=== PATIENT | male | born 1965 | race Caucasian/White ===

== ENCOUNTER 2016-08-09 16:29 | Emergency (ER) | payer BC ==
[~2016-08-09 16:29] MED LIST: ASAB PO; LIPITOR20 PO; LISINOPRIL40 MG PO; LOP25 PO; NEUR300 PO; NEXIUM20 M1 PO; NITROQUICK0.4 MG SL; NORV10 PO
[2016-08-09 17:10] LABS: BASOPHILS 0.1 %; BASOPHILS ABSOLUTE 0.01 10/3/uL (0.0-0.16); EOSINOPHILS 0.6 %; EOSINOPHILS ABSOLUTE 0.05 10/3/uL (0.0-0.53); HEMATOCRIT 42.2 % (40.0-51.0); HEMOGLOBIN 14.4 g/dL (13.6-17.8); IMMATURE GRANULOCYTES 0.2 %; IMMATURE GRANULOCYTES ABSOLUTE 0.02 10/3/uL (0.0-0.11); LYMPHOCYTES 8.8 %; LYMPHOCYTES ABSOLUTE 0.79 10/3/uL (0.67-4.30); MANUAL DIFF NO %; MEAN CORPUS HGB CONC 34.1 g/dL (32.0-36.0); MEAN CORPUSCULAR HEMOGLOB 28.4 pg (26.0-34.0); MEAN CORPUSCULAR VOLUME 83.2 fL (80-100); MEAN PLATELET VOLUME 10.7 fL (9.2-13.0); MONOCYTES 6.3 %; MONOCYTES ABSOLUTE 0.56 10/3/uL (0.21-1.20); NEUTROPHILS ABSOLUTE 7.51 10/3/uL (2.02-8.40); PLATELET COUNT 165 10/3/uL (150-400); RED CELL COUNT 5.07 10/6/uL (4.7-6.1); WHITE BLOOD CELLS 8.9 10/3/uL (4.5-10.5)
[2016-08-09 17:16] LABS: INTERNATIONAL NORMAL RATI 1.1 UNITS (-); PARTIAL THROMBO TIME 24.1 SEC (22.5-37.2); PROTIME (NOT ORD) 13.7 SEC (12.0-14.5)
[2016-08-09 17:24] LABS: BUN (BLOOD UREA NITROGEN) 13 MG/DL (6-23); CHEST PAIN PROFILE TAT 0 Hrs 18 Mins; CHLORIDE, SERUM 105 MMOL/L (96-112); CO2 (CARBON DIOXIDE) 30 MMOL/L (24-34); CREATININE 1.33 MG/DL (0.70-1.30); GFR AFRICAN AMERICAN 71 ML/MIN (>=60); GFR NON AFRICAN AMERICAN 61 ML/MIN (>=60); GLUCOSE, SERUM 105 MG/DL (60-99); POTASSIUM, SERUM 4.2 MMOL/L (3.5-5.3); SODIUM, SERUM 140 MMOL/L (135-148); TROPONIN I <0.02 NG/ML (<0.05)
== END 2016-08-09 18:11 | disposition left against medical advice (07) ==
LOC: ER 16:29
PROVIDERS: Physician Assistant
DX: R07.9 Chest pain, unspecified (principal); I10 Essential (primary) hypertension; K21.9 Gastro-esophageal reflux disease without esophagitis; E78.5 Hyperlipidemia, unspecified; Z79.899 Other long term (current) drug therapy; Z79.82 Long term (current) use of aspirin
CPT/HCPCS: 71010; 80048; 83735; 84484; 85025; 85610; 85730; 93005; 99285; A9270-GY

== ENCOUNTER 2016-08-22 12:44 | Inpatient (IN) | payer BC ==
--- NOTE | ~2016-08-22 | DS ---
Discharge Summary [facility] [address] [place]. [address] NAME: WARREN BLEDSOE : 61 STATUS : DIS IN PAT#: [id number] AGE: 50 ADM/REG DATE : 08/22/16 MR#: [id number] REPORT SERV DATE: 09/01/16 DICTATED BY: MONTSERRAT EUGENE DATE: 09/01/16 REPORT STATUS : Draft TRANSCRIBED BY: ZAHEER DATE: 09/01/16 Data Collection from hospitalization DISCHARGE DIAGNOSES: 1. ST-elevation myocardial infarction. 2. Coronary artery disease status post drug-eluting stent to the proximal LAD. 3. Hypertension. 4. Obstructive sleep apnea (CPAP). 5. Rheumatoid arthritis. CONSULTATIONS: None. PROCEDURES: Cardiac catheterization and percutaneous coronary intervention on 08/22/2016. DISCHARGE MEDICATIONS: Norvasc 10 mg daily, aspirin 81 mg daily, Lipitor 40 mg at bedtime, Coreg 6.25 mg twice a day, Nexium 20 mg at bedtime, NitroQuick 0.4 mg sublingually as needed, Brilinta 90 mg twice a day. He was instructed not to continue metoprolol or lisinopril. CONDITION ON DISCHARGE: Stable. DISPOSITION: The patient was discharged home on a low-sodium, low-cholesterol, cardiac diet with activities as instructed. He would follow up with me on 09/23/[address] Joby Hodge one week following discharge. HOSPITAL COURSE: This is a 50-year-old man, who has a history of coronary artery disease, which was thought to be nonobstructive at catheterization on 04/08/[address] Dexter. He had been in his usual state of health until the day prior to this admission when he was lifting railroad ties and developed left precordial chest pain without radiation. It was 3- 4/10 in severity. He took four baby aspirin and two nitroglycerin about 30 minutes apart and this eased off some, but did not completely go away. He came to the [facility] and was treated with nitroglycerin paste and the pain improved, but was still not 100% gone. He had a tiny amount of residual discomfort; not had any nausea, vomiting, dyspnea, or diaphoresis. The pain was described as dull and lasted a couple of hours altogether. It was not like his episode in March, which was more like a pressure sensation at that time. It was felt that he would need to undergo a cardiac catheterization and possible percutaneous coronary intervention. He was transferred to [facility] and admitted at this time for further evaluation and treatment. Upon admission, he was taken to the cardiac cathode ray tube salvage processor, where he underwent the above-mentioned procedure. He tolerated this well. There were no complications. The following day, he said he felt great. He was in a normal sinus rhythm. He had no edema. On 08/23/2016, he continued to progress. He said he felt well. He remained in a normal sinus rhythm. Discharge planning was performed. On 08/25/2016, he had no chest pain, shortness of breath, or palpitations. He was ambulating in his room. He has an ejection fraction of 40% to 45%. Discharge instructions were given. Due to his improved and stable condition, he was discharged home with the above-stated instructions. Discharge Summary [facility] [address] [place]. [address] NAME: WARREN BLEDSOE : 61 STATUS : DIS IN PAT#: [id number] AGE: 50 ADM/REG DATE : 08/22/16 MR#: [id number] REPORT SERV DATE: 09/01/16 DICTATED BY: MONTSERRAT EUGENE DATE: 09/01/16 REPORT STATUS : Draft TRANSCRIBED BY: ZAHEER DATE: 09/01/16 Information collected by: Sharonda Gloria I submit the above information as my discharge summary. SUKH/ZAHEER Montserrat Eugene M.D. / [id number] CC: Montserrat Eugene M.D.
[2016-08-22 16:01] LABS: CK-MB 11.5 NG/ML
[2016-08-22 16:02] LABS: CKMB INDEX (NOT ORD) 6.1; TROPONIN I 2.61 NG/ML (<0.05)
[2016-08-22 22:59] LABS: CK-MB 26.3 NG/ML
[2016-08-22 23:01] LABS: CKMB INDEX (NOT ORD) 8.3; TROPONIN I 8.64 NG/ML (<0.05)
[2016-08-23 06:58] LABS: BASOPHILS 0.3 %; BASOPHILS ABSOLUTE 0.02 10/3/uL (0.0-0.16); EOSINOPHILS 0.6 %; EOSINOPHILS ABSOLUTE 0.04 10/3/uL (0.0-0.53); HEMOGLOBIN 13.7 g/dL (13.6-17.8); IMMATURE GRANULOCYTES 0.3 %; IMMATURE GRANULOCYTES ABSOLUTE 0.02 10/3/uL (0.0-0.11); LYMPHOCYTES 15.2 %; LYMPHOCYTES ABSOLUTE 1.07 10/3/uL (0.67-4.30); MEAN CORPUS HGB CONC 33.4 g/dL (32.0-36.0); MEAN CORPUSCULAR HEMOGLOB 28.1 pg (26.0-34.0); MONOCYTES 8.9 %; MONOCYTES ABSOLUTE 0.63 10/3/uL (0.21-1.20); NEUTROPHILS 74.7 %; NEUTROPHILS ABSOLUTE 5.27 10/3/uL (2.02-8.40); RBC DISTRIBUTION WIDTH 13.1 % (12.0-16.0); RED CELL COUNT 4.88 10/6/uL (4.7-6.1); WHITE BLOOD CELLS 7.1 10/3/uL (4.5-10.5)
[2016-08-23 06:59] LABS: MANUAL DIFF NO %; PLATELET COUNT 167 10/3/uL (150-400)
[2016-08-23 07:21] LABS: BUN (BLOOD UREA NITROGEN) 9 MG/DL (6-23); CALCIUM, SERUM 8.5 MG/DL (8.5-10.4); CHLORIDE, SERUM 103 MMOL/L (96-112); CHOLESTEROL 92 MG/DL (< 200); CK-MB 19.3 NG/ML; CO2 (CARBON DIOXIDE) 27 MMOL/L (24-34); CPK 241 U/L (0-200); GFR AFRICAN AMERICAN 73 ML/MIN (>=60); GFR NON AFRICAN AMERICAN 63 ML/MIN (>=60); HDL CHOLESTEROL 31 MG/DL (> 39); LDL CHOLESTEROL 40 MG/DL (< 130); NON-HDL CHOLESTEROL 61 MG/DL (< 160); POTASSIUM, SERUM 4.2 MMOL/L (3.5-5.3); SODIUM, SERUM 139 MMOL/L (135-148); TRIGLYCERIDE 109 MG/DL (< 150)
[2016-08-23 07:22] LABS: GLUCOSE, SERUM 101 MG/DL (60-99); TROPONIN I 6.15 NG/ML (<0.05)
[2016-08-24 05:51] LABS: CREATININE 1.39 MG/DL (0.70-1.30)
[2016-08-25 12:55] LABS: CALCIUM, SERUM 9.3 MG/DL (8.5-10.4); CHLORIDE, SERUM 100 MMOL/L (96-112); CO2 (CARBON DIOXIDE) 27 MMOL/L (24-34); CREATININE 1.51 MG/DL (0.70-1.30); GFR AFRICAN AMERICAN 61 ML/MIN (>=60); GFR NON AFRICAN AMERICAN 52 ML/MIN (>=60); GLUCOSE, SERUM 94 MG/DL (60-99); POTASSIUM, SERUM 4.3 MMOL/L (3.5-5.3); SODIUM, SERUM 138 MMOL/L (135-148)
[2016-08-25 12:56] LABS: BUN (BLOOD UREA NITROGEN) 14 MG/DL (6-23)
[2016-08-25] MEDS ORDERED: BRILINTA90 MG PO (14:35)
[2016-08-25] MEDS ORDERED: LIPITOR40 PO (14:36)
[2016-08-25] MEDS ORDERED: COREG6 PO (14:37)
[2016-08-25] MEDS ORDERED: NITROQUICK0.4 MG SL (14:39)
== END 2016-08-25 15:13 | disposition home or self-care (01) | DRG 247 ==
LOC: SSU2 12:44 → CCU 14:06 → 7NO 08-23 18:08
PROVIDERS: Internal Medicine Cardiovascular Disease; Nurse Practitioner Family
PROC: 4A023N7 Measurement of Cardiac Sampling and Pressure, Left Heart, Percutaneous Approach (ICD-10-PCS; principal; 2016-08-22)
PROC: 027034Z Dilation of Coronary Artery, One Artery with Drug-eluting Intraluminal Device, Percutaneous Approach (ICD-10-PCS; 2016-08-22)
PROC: B2111ZZ Fluoroscopy of Multiple Coronary Arteries using Low Osmolar Contrast (ICD-10-PCS; 2016-08-22)
PROC: B2151ZZ Fluoroscopy of Left Heart using Low Osmolar Contrast (ICD-10-PCS; 2016-08-22)
DX: I21.3 ST elevation (STEMI) myocardial infarction of unspecified site (principal); N18.3 Chronic kidney disease, stage 3 (moderate); I12.9 Hypertensive chronic kidney disease with stage 1 through stage 4 chronic kidney disease, or unspecified chronic kidney disease; I25.10 Atherosclerotic heart disease of native coronary artery without angina pectoris; E78.00 Pure hypercholesterolemia, unspecified; Z82.49 Family history of ischemic heart disease and other diseases of the circulatory system
CPT/HCPCS: 71010; 80048; 80061; 82550; 82553; 82565; 84484; 85025; 85347; 87641; 93005; 93458; 99152; 99153; A9270-GY; C1760; C1769; C1874; C1887; C1894; C9606; J1652; J2250; J3010; Q9967